=== PATIENT | female | born 2005 | race Caucasian/White ===

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

== ENCOUNTER → 2024-07-16 | Outpatient (CLI) | payer OTHER ==
--- NOTE | 2024-07-16 14:58 | XR ---
EXAMINATION TYPE: XR hand complete LT DATE OF EXAM: 07/16/2024 COMPARISON: NONE HISTORY: Pain TECHNIQUE: Three views are submitted. FINDINGS: The osseous structures are intact. The joint spaces are preserved and there is no acute fracture or dislocation. IMPRESSION: 1. No definite acute fracture or dislocation if symptoms persist, follow-up study in 7 to 10 days wo uld be suggested [facility] Jerome, , 07/16/2024 2:55 PM
--- NOTE | 2024-07-16 14:59 | XR ---
EXAMINATION TYPE: XR wrist complete LT DATE OF EXAM: 07/16/2024 COMPARISON: NONE HISTORY: Pain TECHNIQUE: Four views submitted. FINDINGS: The osseous structures are intact. The joint spaces are preserved and there is no acute fracture or dislocation. IMPRESSION: 1. No definite acute fracture or dislocation if symptoms persist, follow-up study in 7 to 10 days wo uld be suggested [facility], , 07/16/2024 2:56 PM
== END ==
LOC: RADXRMAIN 14:18
PROVIDERS: ATTEND Emergency Medicine